=== PATIENT | female | born 1960 | race Caucasian/White ===

== ENCOUNTER 2024-10-03 19:08 | Emergency (ER) | payer OTHER, SELFPAY ==
--- NOTE | 2024-10-03 19:12 | WPDEDEXPGENP ---
HPI - General Ped General Stated complaint: Ear Irritation Time Seen by Provider: 10/03/24 19:12 Source: patient Mode of arrival: ambulatory Limitations: no limitations Nursing Documentation: reviewed/agree History of Present Illness HPI narrative: 63-year-old female patient presents to the [facility] with complaints of right ear pain. Patient states she went [place]aking on the [place] on Friday morning and states starting Friday night she started having pain to the ear when she slept that night and then every once while during the day she would get established with a pain in the right ear. Patient states she has been taking some ibuprofen for the pain but when coming get checked out. Denies any discharge coming from the ear denies fevers body aches or chills. Related Data Allergies Allergy/AdvReac Type Severity Reaction Status Date / Time No Known Allergies Allergy Verified 10/03/24 19:40 Pediatric Review of Systems Review of Systems: CONSTITUTIONAL: Denies fever, chills, or sweats. EYES: Denies visual changes, redness, or discharge. ENT: Denies rhinorrhea, congestion, sore throat, positive right otalgia. CARDIOVASCULAR: Denies chest pain, palpitations, or edema. RESPIRATORY: Denies cough or dyspnea. GASTROINTESTINAL: Denies abdominal pain, nausea, vomiting, or diarrhea. GENITOURINARY: Denies dysuria or hematuria. SKIN: Denies rash or itching. MUSCULOSKELETAL: Denies back pain, joint pain, or myalgia. NEUROLOGIC: Denies headache, numbness, or weakness. PSYCHIATRIC: Denies anxiety or depression. PMFSH Comments At the time of my signature I agree with nursing past medical history, surgical, social, and family history. There is no relevant family history pertinent to the presenting complaint. Pediatric Exam Narrative: Physical exam: GENERAL: Well-appearing, well-nourished, and in no acute distress. HEAD: Normocephalic, atraumatic. EYES: PERRLA and EOMI. ENT: Nares clear, no rhinorrhea or epistaxis. Mucous membranes moist. Posterior pharynx with no erythema, tonsillar enlargement, exudates or lesions present. Unable to visualize the left TM due to cerumen impaction. Unable to visualize the right TM due to cerumen impaction however wound some of the cerumen was cleared away it was obvious that there was some drainage and inflammation of the canal. NECK: Supple. No lymphadenopathy CHEST: Clear to auscultation. No respiratory distress. HEART: Regular rate and rhythm. No murmur heard. Normal peripheral pulses. ABDOMEN: Soft, nontender, nondistended, normal active bowel sounds. EXTREMITIES: Normal range of motion. No edema. SKIN: Warm, dry, no rash. NEURO: No focal deficits. Alert and oriented x3. Course Course Level of Care: Express Care Visit Vital Signs Vital signs: Vital Signs Temperature 36.9 C 10/03/24 19:17 Pulse Rate 91 10/03/24 19:17 Respiratory Rate 18 10/03/24 19:17 Blood Pressure 108/59 L 10/03/24 19:17 Pulse Oximetry 97 10/03/24 19:17 Oxygen Delivery Room Air 10/03/24 19:17 Temperature 36.9 C 10/03/24 19:17 Pulse Rate 91 10/03/24 19:17 Respiratory Rate 18 10/03/24 19:17 Blood Pressure 108/59 L 10/03/24 19:17 Pulse Oximetry 97 10/03/24 19:17 Oxygen Delivery Room Air 10/03/24 19:17 Vital signs reviewed. Procedures Ear Wax Removal Right Ear: Ear Wax Removal Date: 10/03/24 Ear Wax Removal Time: 19:44 Cerumenolytic Used: 5-10% Sodium Bicarb solution Results: Re-examined: some cerumen remains TM Examination: other (Canal with irritation and swelling and some pus noted. The procedure was stopped due to pain) Ear Canal Exam: other (See note above) Patient Tolerated Procedure: well Complications: pain Technique: ear canal irrigated and ear canal curetted Additional Comments: T attempted to remove cerumen from the R ear canal with warm water and peroxide irrigation and a loop in order to visualize the TM. Unable to completely remove the cerumen from the right canal due to pain. Some of the cerumen was removed and the canal was re-examined to show the some irritation swelling and pus noted to the canal indicating an infection. Patient will be discharged home within antibiotic ear drop to help with the pain and infection and encouraged patient to try and remove the wax in about 2-3 days once the pain has become more under control. Encouraged patient to get some [id number] Debrox and warm water to help with the removal of the wax. Medical Decision Making MDM Narrative Medical decision making narrative: Plan of care for patient is discharged home with an antibiotic ear drop for a otitis externa infection. Encouraged patient to use this for a couple of days and then try to clear out the ear wax to bilateral ears with some [id number] Debrox and warm water. Patient verbalized understanding denies any other questions or concerns at this time. Differential Diagnosis Differential Diagnosis: Differential diagnosis: Conjunctivitis, foreign body, corneal ulcer, Keratitis, dendritic lesions, corneal abrasion, very orbital infection, orbital cellulitis, orbital pain, acute narrow angle glaucoma, detached retina, central retinal artery occlusion, complete hyphema, vitreous hemorrhage, optic neuritis, globe disruption Vital Signs Vital Signs: Vital Signs Temperature 36.9 C 10/03/24 19:17 Pulse Rate 91 10/03/24 19:17 Respiratory Rate 18 10/03/24 19:17 Blood Pressure 108/59 L 10/03/24 19:17 Pulse Oximetry 97 10/03/24 19:17 Oxygen Delivery Room Air 10/03/24 19:17 Temperature 36.9 C 10/03/24 19:17 Pulse Rate 91 10/03/24 19:17 Respiratory Rate 18 10/03/24 19:17 Blood Pressure 108/59 L 10/03/24 19:17 Pulse Oximetry 97 10/03/24 19:17 Oxygen Delivery Room Air 10/03/24 19:17 Critical Care Time Critical Care Time Critical Care Time: No Discharge Plan Discharge Clinical Impression: Otitis externa Qualifiers: Otitis externa type: swimmer's ear Chronicity: acute Laterality: right Qualified Code(s): H60.331 - Swimmer's ear, right ear Excessive cerumen in ear canal Qualifiers: Laterality: bilateral Qualified Code(s): H61.23 - Impacted cerumen, bilateral Patient Disposition: Home Condition: Stable Instructions: Antibiotic Form, Swimmer's Ear (GEN) Additional Instructions: Return to the emergency department if: You have severe ear pain. You are suddenly unable to hear at all. You have new swelling in your face, behind your ears, or in your neck. You suddenly cannot move part of your face. Your face suddenly feels numb. Contact your healthcare provider if: You have a fever. Your signs and symptoms do not get better after 2 days of treatment. Your signs and symptoms go away for a time, but then come back. You have questions or concerns about your condition or care. Medicines: NSAIDs , such as ibuprofen, help decrease swelling, pain, and fever. This medicine is available with or without a doctor's order. NSAIDs can cause stomach bleeding or kidney problems in certain people. If you take blood thinner medicine, always ask if NSAIDs are safe for you. Always read the medicine label and follow directions. Do not give these medicines to children under 6 months of age without direction from your child's healthcare provider. Acetaminophen decreases pain and fever. It is available without a doctor's order. Ask how much to take and how often to take it. Follow directions. Acetaminophen can cause liver damage if not taken correctly. Ear drops that contain an antibiotic may be given. The antibiotic helps treat a bacterial infection. You may also be given steroid medicine. The steroid helps decrease redness, swelling, and pain. How to use eardrops: Lie down on your side with your infected ear facing up. Carefully drip the correct number of eardrops into your ear. Have another person help you if possible. Gently move the outside part of your ear back and forth to help the medicine reach your ear canal. Stay lying down in the same position (with your ear facing up) for 3 to 5 minutes. Prevent otitis externa: Do not put cotton swabs or foreign objects in your ears. Wrap a clean moist washcloth around your finger, and use it to clean your outer ear and remove extra ear wax. Use ear plugs when you swim. Dry your outer ears completely after you swim or bathe. Wax softening eardrops may be obtained without a prescription. (dubrox) Gently clean the outer part of the ear with a cotton swab. Do NOT place the cotton swab or anything inside your ear canal. This increases the risk of damaging your eardrum. Contact your primary care provider or go to the emergency department if: Have a fever Have trouble hearing or ringing in the ear You feel dizzy You have discharge or blood coming out of her ear Your ear pain does not go away or gets worse Patient Language: Slovenian Prescriptions: New ofloxacin 0.3 % drops 10 drp RIGHT EAR DAILY 7 Days Qty: 10 0RF Follow-up/Referrals: Miracle,Radha Carlisle MD [Primary Care Provider] - Time of Disposition: 19:41
[2024-10-03 19:17] VITALS: BP 108/59; PULSE 91; RESP 18; TEMP 36.9; O2SAT 97
== END 2024-10-03 20:05 | disposition home or self-care (01) ==
PROVIDERS: Emergency Provider Nurse Practitioner Family; PCP Family Medicine
DX: H60.331 Swimmer's ear, right ear (principal); H61.23 Impacted cerumen, bilateral; E03.9 Hypothyroidism, unspecified
CPT/HCPCS: 69210; 99213; G0463